=== PATIENT | female | born 1945 | race Two or more races ===

== ENCOUNTER 2019-03-02 10:55 | Day surgery (SDC) | payer OTHER | END 2019-03-02 15:25 | disposition home or self-care (01) | LOC: AMB-ENDOS 10:55 | DX: C44.520 Squamous cell carcinoma of anal skin (principal); K64.1 Second degree hemorrhoids ==

== ENCOUNTER 2020-09-19 07:54 | Day surgery (SDC) | payer OTHER | END 2020-09-19 14:50 | disposition home or self-care (01) | LOC: AMB-ENDOS 07:54 | PROVIDERS: ATTEND Colon & Rectal Surgery | DX: K62.89 Other specified diseases of anus and rectum (principal); K64.1 Second degree hemorrhoids; Z20.822 Contact with and (suspected) exposure to COVID-19 ==